=== PATIENT | female | born 1960 | race Caucasian/White ===

== ENCOUNTER 2020-12-18 15:46 | Emergency (ER) | payer BC ==
[~2020-12-18] VITALS: Ht 162.6 cm; Wt 79.4 kg
== END 2020-12-18 18:45 | disposition home or self-care (01) ==
LOC: ER1 15:46
DX: Z23 Encounter for immunization (principal); U07.1 COVID-19; E78.5 Hyperlipidemia, unspecified; I10 Essential (primary) hypertension; Z88.0 Allergy status to penicillin
CPT/HCPCS: 99283; M0243

== ENCOUNTER → 2021-02-02 | Outpatient (CLI) | payer BC | LOC: US 14:52 | DX: D25.9 Leiomyoma of uterus, unspecified (principal) | CPT/HCPCS: 76830 ==